=== PATIENT | female | born 1940 | race Hispanic/Latino ===

== ENCOUNTER 2017-05-12 08:26 | Day surgery (SDC) | payer MEDICARE, OTHER ==
[2017-05-12] MEDS ORDERED: XYLOCAINE MPF 2% ONE (09:22)
[2017-05-12] MEDS ORDERED: VERSED ONE (09:22)
[2017-05-12] MEDS ORDERED: DIPRIVAN 10 MG/ML IV ONE ×3 (09:22)
--- NOTE | 2017-05-12 09:27 | Anesthesia Consultation ---
Anesthesia Consult and Med Hx Date of service: 05/12/17 - Airway Anesthetic Teeth Evaluation: Good, Crowns, Bridges ROM Head & Neck: Adequate Mental/Hyoid Distance: Adequate Mallampati Class: Class II Intubation Access Assessment: Probably Good - Pre-Operative Health Status ASA Pre-Surgery Classification: ASA2 Proposed Anesthetic Plan: MAC - Endocrine Hx Renal Disease: Yes (one kidney) - Other Systems Hx Cancer: Yes (s/p nephrectomy)
--- NOTE | 2017-05-12 09:27 | Anesthesia Day of Surgery ---
Anesthesia Day of Surgery - Day of Surgery Patient Examined: Yes Patient H&P Reviewed: Yes Patient is NPO: Yes
[2017-05-12] MEDS ORDERED: NACL 0.9% 1000 ML 1,000 ML IV SCH (10:00)
[2017-05-12 10:05] LABS: Anion Gap 17 mmol/L; BUN/Creatinine Ratio 24.44; Blood Urea Nitrogen 22 mg/dL (7-17); Calcium 8.8 mg/dL (8.4-10.2); Carbon Dioxide 24 mmol/L (22-30); Chloride 103.5 mmol/L (98-107); Glucose 90 mg/dL (65-100); Potassium 4.4 mmol/L (3.6-5.0); Sodium 140 mmol/L (137-145)
--- NOTE | 2017-05-12 11:32 | Magnetic Resonance Report ---
MR ABDOMEN WITH AND WITHOUT CONTRAST History: Renal mass. Technique: Multisequence, multiplanar MRI before and after 15 cc of Multihance intravenously. Comparison: Renal ultrasound dated 04/21/17 from an outlying hospital, [facility]. Findings: Left nephrectomy changes are again noted. The right kidney measures 10.5 cm in length. There is a 1.7 cm simple cyst at the inferior pole of the right kidney. There is no evidence for hemorrhagic change, calcifications or soft tissue component on MRI. No enhancement. This is consistent with a Bosniak class I renal cyst. No other right renal lesions. No hydronephrosis. The liver is normal size and contour. A lobulated cyst in the superior right hepatic lobe measures up to 2.6 cm. A lobulated cyst in the left hepatic lobe measures 2.1 cm. The remainder of the liver is within normal limits. The biliary system, pancreas, spleen and right adrenal gland are unremarkable. The left adrenal gland is not confidently identified. The aorta is normal caliber. The visualized bowel loops are within normal limits. No evidence for adenopathy, ascites or inflammatory change. Normal bone marrow signal in the visualized osseous structures. Impression: 1.7 cm simple cyst at the inferior pole the right kidney. No renal mass. Liver cysts. Left nephrectomy changes.
[2017-05-12 12:12] VITALS: BP 123/66
== END 2017-05-12 12:35 | disposition home or self-care (01) ==
LOC: CATHLABREC 08:26 → EDSTATUS 09:00 → CATHLABREC 12:35
PROVIDERS: ATTEND Urology
DX: N28.1 Cyst of kidney, acquired (principal); N28.89 Other specified disorders of kidney and ureter; Z85.528 Personal history of other malignant neoplasm of kidney; Z90.5 Acquired absence of kidney
CPT/HCPCS: 36415; 74183; 80048; A9577; J2250; J2704; J7030

== ENCOUNTER 2018-12-14 15:53 | Outpatient (CLI) | payer MEDICARE, OTHER ==
[2018-12-14] MEDS ORDERED: ATIVAN PO ONE (22:00)
--- NOTE | 2018-12-16 19:34 | Magnetic Resonance Report ---
PROCEDURE: MR ABDOMEN WO/W CON HISTORY: malignant neoplasm of the kidney FINDINGS: MRI of the abdomen was performed using axial T1-weighted gradient echo images in and out of phase, axial T2*gradient echo images, coronal T2*gradient echo images, coronal fat-saturated T1-weig hted images, and axial and coronal postcontrast T1-weighted images obtained following the intravenous administration of 12 cc MultiHance. Comparison is made to the prior examination of May 12, 2017. These images demonstrate hepatic cysts. No suspect focal renal lesion is seen. The spleen is normal i n size at 11.7 x 3.4 cm. The adrenal glands are within normal limits. No focal pancreatic lesion is seen. There has been a cholecystectomy. No evidence of local tumor residual or recurrence is seen. There is a right renal cyst 1.6 cm. No suspect focal renal mass is seen. The abdominal aorta is normal in size. The celiac axis superior mesenteric artery and inferior mesent ray artery are all patent. The right renal artery is patent. IMPRESSION: Left nephrectomy Right renal cyst. No suspect focal right renal lesion is seen This document is electronically signed by Hitesh Calhoun MD., December 16 2018 07:32:41 PM ET
== END 2018-12-14 15:54 | disposition home or self-care (01) ==
LOC: MRI 15:53
PROVIDERS: ATTEND Urology
DX: N28.1 Cyst of kidney, acquired (principal); C64.9 Malignant neoplasm of unspecified kidney, except renal pelvis; Z88.1 Allergy status to other antibiotic agents; K21.9 Gastro-esophageal reflux disease without esophagitis; M19.90 Unspecified osteoarthritis, unspecified site; Z90.49 Acquired absence of other specified parts of digestive tract; Z90.710 Acquired absence of both cervix and uterus
CPT/HCPCS: 36415; 74183; 82565; 84520; A9577